=== PATIENT | female | born 1940 | race Caucasian/White ===

== ENCOUNTER → 2018-08-13 16:45 | Outpatient (CLI) | payer MEDICARE, BC, SELFPAY ==
[2018-08-13 11:51] VITALS: BMI 29.1
== END ==
PROVIDERS: Family Provider Nurse Practitioner; PCP Nurse Practitioner; Referring Provider Physician Assistant Medical; Visit Provider Physician Assistant Medical
DX: N39.0 Urinary tract infection, site not specified (principal)
CPT/HCPCS: 87086; 87088

== ENCOUNTER → 2019-01-12 10:50 | Outpatient (CLI) | payer MEDICARE, BC, SELFPAY ==
[2018-08-13 11:51] VITALS: BMI 29.1
--- NOTE | 2019-01-12 10:53 | US_ITS ---
STUDY: ULTRASOUND OF THE FEMALE PELVIS - COMPLETE REASON FOR EXAM: Female, 78 years old. Postmenopausal bleeding. LMP: The patient is postmenopausal. TECHNIQUE: Transabdominal and Transvaginal TECHNICAL QUALITY: Adequate. COMPARISON: None. FINDINGS: The uterus is anteverted and is in a midline position. The uterus measures 7.6 cm x 4.2 cm. There is a Nabothian cyst of the cervix. The endometrium is thickened and measures 14.3 mm in thickness, and is hyperechoic. There is no demonstrated endometrial mass. There is no demonstrated myometrial mass. I.U.D. - The patient does not have an I.U.D. The right ovary is non-visualized. The left ovary is non-visualized. There is minimal fluid in the cul-de-sac. The pre void volume of the bladder was 168 ml. Polycystic ovary disease: No. US/Pelvic (Non ) IMPRESSION: Heterogeneous appearance of the uterus. Thickened endometrium measuring 14.3 mm. Minimal amount of fluid is seen in the cul-de-sac. Electronically Signed: Stuart Bradford, at 12:43 EDT , Service support ,
--- NOTE | 2019-01-12 10:53 | US_ITS ---
STUDY: ULTRASOUND OF THE FEMALE PELVIS - COMPLETE REASON FOR EXAM: Female, 78 years old. Postmenopausal bleeding. LMP: The patient is postmenopausal. TECHNIQUE: Transabdominal and Transvaginal TECHNICAL QUALITY: Adequate. COMPARISON: None. FINDINGS: The uterus is anteverted and is in a midline position. The uterus measures 7.6 cm x 4.2 cm. There is a Nabothian cyst of the cervix. The endometrium is thickened and measures 14.3 mm in thickness, and is hyperechoic. There is no demonstrated endometrial mass. There is no demonstrated myometrial mass. I.U.D. - The patient does not have an I.U.D. The right ovary is non-visualized. The left ovary is non-visualized. There is minimal fluid in the cul-de-sac. The pre void volume of the bladder was 168 ml. Polycystic ovary disease: No. US/Transvaginal Non- IMPRESSION: Heterogeneous appearance of the uterus. Thickened endometrium measuring 14.3 mm. Minimal amount of fluid is seen in the cul-de-sac. Electronically Signed: Stuart Bradford, at 12:43 EDT , Service support ,
== END ==
PROVIDERS: Family Provider Nurse Practitioner; PCP Nurse Practitioner; Referring Provider Urology; Visit Provider Urology
DX: N95.0 Postmenopausal bleeding (principal)
CPT/HCPCS: 76830; 76856

== ENCOUNTER → 2019-01-30 16:56 | Outpatient (CLI) | payer MEDICARE, BC, SELFPAY ==
--- NOTE | 2019-01-30 | EMB_PTH ---
PATIENT: OBIE ZAPATA LOC: [facility] U#:[id number] AGE/SX: 84/F ROOM: RE01/30/[address]: LES Vo : 1940 BED: DIS: SPEC #: [id number] RECD: 01/30/19 16:56 STATUS: GERARDO BAUTISTA #: [id number] ROCIO: 01/30/19 00:[address]: Nanette Rodriguez NP DEPT: SURGICAL PATHOLOGY RECD BY: Robe Lawson ENTERED: 01/31/19 11:05 ANDREA TYPE: ENDOM BX/C MATT DR: LES Olivo Tissues: Endometrium, NOS Procedures: Surgery Specimen Level IV HEADER OPERATION: Endometrial biopsy PRE-OP DIAGNOSIS: Thickened endometrium TISSUE SUBMITTED: Endometrial biopsy MICROSCOPIC DIAGNOSIS Endometrial biopsy: Strips of benign endometrial epithelium, consistent with atrophic endometrium. Fragments of benign endocervical mucosa with chronic inflammation and squamous metaplasia. SJ:andrea 02/01/19 COMMENT Clinical correlation and appropriate follow up are necessary. Case has been reviewed in consultation with Dr. Hester who concurs with the above diagnosis. IDC:AM MICROSCOPIC DESCRIPTION Slides are reviewed. GROSS DESCRIPTION Received is one container labeled with the patient name and not further designated. The specimen consists of multiple minute fragments of light carr soft tissue that in aggregate measure 1.2 x 0.6 x <0.1 cm. The specimen is totally submitted in one cassette. / AM:sp 01/31/19 TC: 5 CPT: 52778
[2019-01-30 15:50] VITALS: BMI 28.2
== END ==
PROVIDERS: Family Provider Nurse Practitioner; PCP Nurse Practitioner; Referring Provider Nurse Practitioner Women's Health; Visit Provider Nurse Practitioner Women's Health
DX: R93.89 Abnormal findings on diagnostic imaging of other specified body structures (principal)
CPT/HCPCS: 88305

== ENCOUNTER 2019-03-04 10:54 | Emergency (ER) | payer MEDICARE, BC, SELFPAY ==
[2019-03-01 15:25] VITALS: BMI 28.3
[2019-03-04 10:54] VITALS: BP 166/84; PULSE 88; RESP 16; TEMP 36.4; O2SAT 98; BMI 28.3
[2019-03-04 11:33] VITALS: BP 147/75; BP 154/72; BP 158/77; PULSE 102; PULSE 76; PULSE 95
[2019-03-04 11:41] LABS: Absolute Neutrophil Count 4.7 X10^3/uL (2.0-7.7); Basophil# 0.04 X10^3/uL; Basophil% 0.5 % (0-1); Eosinophil# 0.22 X10^3/uL; Hematocrit 32.4 % (37-47); Hemoglobin 10.2 g/dL (12.0-15.0); Lymphocyte % 23.3 % (19-41); Mean Corp Hgb Conc 31.5 g/dL (32-36); Mean Corpuscular Hgb 24.6 pg (27.0-32.0); Mean Corpuscular Volume 78.3 fL (81-99); Mean Platelet Vol. 9.1 fl (6.2-12.0); Monocyte# 0.61 X10^3/uL; Monocyte% 8.3 % (0-10); NRBC Flagged by Analyzer 0 % (0-5); Neutrophil # 4.72 X10^3/uL (2.7-7.7); Neutrophil % 64.6 % (47-70); Platelet Count 431 K/mm3 (150-450); RBC Distribution Width CV 17.8 % (11.6-14.6); RBC Distribution Width SD 50.7 fl (35.1-43.9); Red Blood Count 4.14 M/mm3 (4.2-5.4); White Blood Count 7.3 K/mm3 (4.4-11.0)
[2019-03-04 11:48] LABS: International Normalized Ratio 1.1; Prothrombin Time (Protime)PT. 14.2 SECONDS (11.7-14.9)
[2019-03-04 11:49] LABS: Partial Thromboplast Time 30.9 Seconds (24.1-36.2)
--- NOTE | 2019-03-04 11:51 | ED.VISSUMM ---
- ER Visit Summary Date of Service: 03/04/19 Chief Complaint: Rectal bleeding History of Present Illness: The patient is a [address] Mendez and Altagracia Ochoa. She reports that she has rectal bleeding began at midnight. She is not on any blood thinners or aspirin. She states that she has aching suprapubic pain that builds up gradually and then she goes and has a bowel movement and passes just dark clots. No bright red blood. No melanotic stool. No stool with this at all. She denies any diarrhea. No nausea, vomiting, dysuria, or frequency. Patient reports that she saw Dr. Mendez in the office last week and was found to have external and internal hemorrhoids. At that time she refused a colonoscopy. Physical Examination: Vitals: Stable. Afebrile. General: Well-nourished and well-developed. Head: Normocephalic atraumatic. Neck: Supple, no lymphadenopathy. No JVD. Nontender. Cardiovascular: Regular rate and rhythm. No murmurs. Respiratory: No respiratory distress. Clear to auscultation bilaterally. Abdominal: Soft, nontender, nondistended, normal bowel sounds. No guarding, rebound, or peritoneal signs. Rectal: She does have external hemorrhoids. There are 2 prolapsed internal hemorrhoids that are not bleeding currently. The external hemorrhoid is not thrombosed. She refused a rectal exam. Back: Nontender. Extremities: Nontender, no edema. Skin: Normal color, no rash. Neurologic: Alert and oriented ?3. Cranial nerves II through XII are intact. Normal strength and sensation. Psych: Normal affect. Test Results: CBC shows an H&H of 10.2 and 32.4. Her last hemoglobin was in March 2017 and at that time it was 10.8. Chem-7 shows a chloride of 108 and glucose 143. INR is 1.[address] flank shows a few diverticuli in the sigmoid/descending colon without diverticulitis. Emergency Department Course and Treatment: Patient is resting comfortably. She is been stable while here. I had a prolonged discussion the patient about treatment options. She would like to go home. I did discuss with her that in order to know the source of her bleeding she will need to have a colonoscopy. At this time she is agreeing to have this occur. Treatment Plan: The patient was discussed with Dr. Mendez. She will be discharged with instructions to call the office in 3 days to schedule a colonoscopy and have the colonoscopy in 4 days. She does understand that she has worsening bleeding, lightheadedness, syncope, shortness of breath, or chest pain that she needs to return to emergency department and be admitted for further evaluation and treatment. Disposition: To home in improved and stable condition. Impression: 1. Stable lower GI bleed. 2. Internal hemorrhoids, prolapse. 3. External hemorrhoids. 4. Diverticulosis. This note was generated with [employer] software. It may contain incorrect words, spelling, and punctuation that were not noted in review of the chart prior to signing ED Disposition - Plan for ED Patient: Disposition: Home or Assisted Living Instructions: RECTAL BLEED, Stable Referrals: Jolene Mendez MD [STAFF PHYSICIAN] - Additional Instructions: Call on Wednesday and they can schedule the colonoscopy on Wednesday.
[2019-03-04 11:52] LABS: Anion Gap 5 (5-15); BUN 13 mg/dL (7-18); BUN/Creat Ratio 18.5 RATIO (10-20); Calcium,Total 8.8 mg/dL (8.5-10.1); Chloride 108 mmol/L (98-107); EST Glomerular Filtration Rate 86 mL/min (>60); Est Glom Filt Rate - Afr Amer 104 mL/min (>60); Estimated Creatinine Clearance 43.07 ml/min; Glucose 143 mg/dL (74-106); Potassium 3.8 mmol/L (3.5-5.1); Sodium Level 140 mmol/L (136-145)
--- NOTE | 2019-03-04 12:10 | CT_ITS ---
STUDY: CT ABDOMEN AND PELVIS WITHOUT CONTRAST REASON FOR EXAM: Female, 78 years old. Lower abdominal pain x days. Diarrhea. RADIATION DOSAGE (If Supplied By Facility): CTDIvol = ( 11.11 ) mGy, DLP = ( 606.82 ) mGycm TECHNIQUE: Transaxial images were obtained from the dome of the diaphragm to the symphysis pubis without oral contrast, and without intravenous contrast. Sagittal and coronal images were reconstructed. Individualized dose optimization techniques were used for this CT. COMPARISON: None. FINDINGS: The visualized lung bases are unremarkable. The visualized portions of the heart are within normal limits. Normal liver. No visible gallbladder. It may be contracted or postsurgically absent. Normal spleen. Normal pancreas. Normal bilateral adrenal glands. Normal right kidney. Normal left kidney. Normal visualized stomach. Normal small intestine. Few diverticula in the sigmoid colon and descending colon without diverticulitis. The appendix is visualized and appears normal. Atherosclerotic calcifications in the abdominal aorta and iliac arteries. Normal inferior vena cava. Normal retroperitoneum. Normal urinary bladder. Hyperdense radiopaque foreign body inside the vaginal canal. Please correlate with physical exam. Normal abdominal wall. Pronounced disc space height narrowing with endplate sclerosis at L1-L2 disc space level. Pronounced disc space height narrowing with vacuum phenomenon at L5-S1 disc space level. Mild degenerative anterolisthesis of L4 on L5 with moderate disc space height narrowing. CT/Abdomen/Pelvis without Cont IMPRESSION: 1. Few diverticula in the sigmoid colon and descending colon without diverticulitis. 2. No suspicious mass or acute abnormality in the abdomen and pelvis. 3. Hyperdense radiopaque foreign body inside the vaginal canal. Please correlate with physical exam or history. Electronically Signed: Jarod Porter MD at 14:14 EDT , Service support ,
[2019-03-04 13:27] VITALS: BP 131/59; PULSE 76; RESP 18; O2SAT 98
[2019-03-04 15:00] VITALS: BP 150/58; PULSE 76; RESP 18; O2SAT 98
[2019-03-04 15:32] VITALS: BP 150/58; PULSE 76; RESP 20; O2SAT 98
== END 2019-03-04 15:33 | disposition home or self-care (01) ==
LOC: ED 11:27
PROVIDERS: Emergency Provider Emergency Medicine; Family Provider Nurse Practitioner; PCP Nurse Practitioner
DX: K64.4 Residual hemorrhoidal skin tags (principal); K64.8 Other hemorrhoids; K57.91 Diverticulosis of intestine, part unspecified, without perforation or abscess with bleeding; E11.9 Type 2 diabetes mellitus without complications; I10 Essential (primary) hypertension; Z86.73 Personal history of transient ischemic attack (TIA), and cerebral infarction without residual deficits
CPT/HCPCS: 74176; 80048; 85025; 85610; 85730; 99285; A4216

== ENCOUNTER 2019-03-08 09:49 | Day surgery (SDC) | payer MEDICARE, BC, SELFPAY ==
[2019-03-08] VITALS (7 sets, daily range): BP systolic 106–141; BP diastolic 43–68; PULSE 77–88; RESP 16–18; TEMP 36.3–37.2; O2SAT 99–100; BMI 27.5
--- NOTE | 2019-03-08 | COLBX_PTH ---
PATIENT: OBIE ZAPATA LOC: EN U#:[id number] AGE/SX: 78/F ROOM: RE03/08/[address]: Dr. Jolene Mendez MD : 1940 BED: DIS: 03/08/2019 SPEC #: [id number] RECD: 03/08/19 11:39 STATUS: GERARDO BAUTISTA #: [id number] ROCIO: 03/08/19 00:[address]: Jolene Mendez DEPT: SURGICAL PATHOLOGY RECD BY: Taisha Tejada ENTERED: 03/08/19 11:55 SP TYPE: COLON BX OTHR DR: Altagracia Ochoa, SPECIMEN TECHNICIAN-C Tissues: Rectum, NOS Procedures: Surgery Specimen Level IV HEADER OPERATION: Colonoscopy (MAC) PRE-OP DIAGNOSIS: Straining with bowel movements, rectal bleeding TISSUE SUBMITTED: Rectal mass biopsy MICROSCOPIC DIAGNOSIS Rectal mass, biopsy: Invasive well differentiated adenocarcinoma. AM:marjan 03/09/19 COMMENT Immunohistochemistry ([id number]) supports the above diagnosis. There is no evidence of micro satellite instability. Case has been reviewed in consultation with Dr. Dickey who concurs with the above diagnosis. IDC:SJ MICROSCOPIC DESCRIPTION Slides are reviewed. GROSS DESCRIPTION Received in fixative is one container labeled with the patient's name and designated rectal mass biopsy. The specimen consists of multiple irregular fragments of light carr soft tissue that in aggregate measure 2 x 1.5 x 0.2 cm. The specimen is totally submitted in one cassette. / AM:rg 03/08/19 TC:0 CPT: 06126
--- NOTE | 2019-03-08 | IMM_PTH ---
PATIENT: OBIE ZAPATA LOC: EN U#:[id number] AGE/SX: 78/F ROOM: RE03/08/[address]: Dr. Jolene Mendez MD : 1940 BED: DIS: 03/08/2019 SPEC #: [id number] RECD: 03/09/19 10:34 STATUS: GERARDO REQ #: [id number] ROCIO: 03/08/19 00:[address]: Jolene Mendez DEPT: IMMUNOHISTOCHEMISTRY RECD BY: Karina Castañeda ENTERED: 03/09/19 10:35 SP TYPE: IMMUNO OTHR DR: Altagracia Ochoa, MANDATE RETAIL SERVICE MERCHANDISER-C Tissues: Rectum, NOS Procedures: MSH2 (add) MLH-1 (add) MSH6 (add) Anti-PMS2 (add) TILLMAN-2 (add) HER2 LUZ (add) P53 (add) KI-67 (initial) PHYSICIAN & INSTITUTION [place] [id number] SPECIMEN INFORMATION: Tissue Source: Rectal mass biopsy Clinical Info: Rectal bleeding Specimen Number: [id number] CPT code: 62018, 79537 x7 METHODOLOGY: Deparaffinized sections of prefer/formalin-fixed tissue or PAP/DQ stained slides are incubated with monoclonal/polyclonal antibodies/oligonucleotide probes. Localization is made via biotin free immunoperoxidase method. Appropriate controls are performed and reacted as expected. Results on target cell population are indicated in the following table: RESULTS: ANTIBODY / CLONE RESULT Ki-67 (30-9) positive, moderate to high P53 (DO-7) positive, 25% dim TILLMAN-2 (SP21) positive MLH-1 (M1) positive MSH2 (25D12) positive MSH6 (44) positive PMS2 (DVQ0262) positive Her-2neu (CB11) negative These tests were developed and their performance characteristics determined by [facility]. They may not have been cleared or approved by the U.S. Food and Drug Administration. The FDA has determined that such clearance or approval is not necessary. INTERPRETATION: Rectal mass, biopsy: Invasive adenocarcinoma. Result of Microsatellite Instability Study: Negative (no loss of mismatch protein; no microsatellite instability detected). AM:marjan 03/10/19
--- NOTE | 2019-03-08 10:37 | HP.PCM_ITS ---
History and Physical Date of Admission: 03/08/19 Intake Vital Signs 02/21/19 Body Mass Index (BMI) 28.3 02/21/19 Height 5 ft 5 in 02/21/19 Weight: 172 lb 02/21/19 Body Mass Index (BMI) 28.6 02/21/19 Blood Pressure 168/78 H 02/21/19 Blood Pressure Location Rt brachial 02/21/19 Respiratory Rate 18 02/21/19 Pulse Rate 80 02/21/19 Pulse Source Monitor 02/21/19 Temperature 98.2 F 02/21/19 Pulse Ox 100 02/21/19 Oxygen Delivery Method room air Intake Visit Reasons: C-Scope Consult & Hemorrhoids Chief Complaint: pessary falling out Audio Visual Engineer Required: No Is patient in pain?: No Allergies chlorhexidine [From Hibiclens] Allergy (Intermediate, Verified 02/21/19 14:24) Rash Latex, Natural Rubber Allergy (Intermediate, Verified 02/17/19 10:53) Rash metoprolol Allergy (Intermediate, Verified 02/21/19 14:24) insomnia prednisone Allergy (Unknown, Verified 02/21/19 14:24) Unknown Medications clopidogrel 75 mg tablet 75 mg PO DAILY 08/13/18 [History Confirmed 02/21/19] quinapril 40 mg tablet 40 mg PO DAILY 08/13/18 [History Confirmed 02/21/19] hydrochlorothiazide 12.5 mg tablet 12.5 mg PO DAILY PRN 01/30/19 [History Confirmed 02/21/19] insulin glargine (U-300) conc. 300 unit/mL (1.5 mL) subcutaneous pen 16 unit SC DAILY ml 01/30/19 [History Confirmed 02/21/19] estradiol 0.01% (0.1 mg/gram) vaginal cream See Rx Instructions VAGINAL 2XW 02/08/19 [History Confirmed 02/21/19] PFSH Medical History TIA (transient ischemic attack) (Acute) Hypertension (Chronic) Diabetes mellitus (Chronic) Arthritis (Acute) Thickened endometrium (Acute) Surgical History (Updated 02/21/19 @ 14:22 by Heaven Barnett) History of hemorrhoidectomy (Acute) S/P cholecystectomy (Resolved) Family History (Updated 02/21/19 @ 14:22 by Heaven S Barnett) Mother Hypertension Diabetes Father Kidney disease Social History (Updated 02/22/19 @ 12:33 by Jolene Mendez MD) Smoking Status: Never smoker alcohol intake: never substance use type: does not use caffeine: Yes what type of physical activity do you participate in: none seatbelt use: always do you feel safe at home: Yes additional social history: -Mckoy HPI HPI HPI: OBIE ZAPATA, is a 78 F who presents to the office today for HPI HPI Surgical H&P: Yes HPI: OBIE ZAPATA, is a 78 F who presents to the office today for hemorrhoids and needing to strain to have BM. Pt has never had a colonoscopy. denies FH of colon cancer. Pt had hemorrhoidectomy about [address] Dean office. Pt does have uterine prolapse and currently has a pessary in currently. Pt states her hemorrhoid can cause her some discomfort occasionally but she feels it maybe further inside her rectum 3-4/10 when it occurs, pt states she does occasionally see maroon blood in the toilet denies clots, pt states she has daily BM mostly liquid, which has been like this for years. She denies abd pain. She isn't really that interested in getting a colonoscopy. Also she was wondering if the pessary could be making it so she needs to strain to have a BM, pt was unable to tell me if she had this issue when the pessary was out. ROS General General: No weight change, appetite, fatigue, colon cancer, breast cancer or weakness HEENT HEENT: No difficulty swallowing, eye injury, eye surgery, swollen glands or hoarseness Endo Endocrine: Yes diabetes mellitus; no thyroid disease, thyroid cancer, Hair loss, heat intolerance or cold intolerance Skin Skin: No rash or changing moles Breast Breast: No left breast lump, right breast lump, nipple discharge, breast pain, abnormal mammogram, abnormal US or breast enlargement Musc Musculoskeletal: Yes arthritis; no back problems, rheumatoid arthritis, gout or joint pain Cardio Cardiovascular: Yes high blood pressure; no murmur, pacemaker, heart disease, atrial fibrillation, heart attack, heart stent, palpitations, shortness of breat with exertion or chest pain Psych Psychiatric: No depression, anxiety or hearing voices Resp Respiratory: No shortness of breath, No sleep apnea, No cough, No COPD, No asthma, No emphysema, No wheezing Gastro Gastrointestinal: No abdominal pain, No nausea or vomiting, Yes diarrhea, No constipation, Yes blood in stool, No acid reflux, Yes hemorrhoids, No ulcers, No gallbladder problem, No black,tarry stools Thomas Hematologic: Yes blood thinners, No blood disorders, No bleeding, Yes anemia, No blood clots Neuro Neurologic: No system reviewed and no additional complaints, except as docu, No as per HPI, No abnormal walking, No abnormal hearing, No abnormal movements, No abnormal speech, No behavioral changes, No burning sensations, No confusion, No seizure-like activity, No unsteadiness, No dizziness, No localized weakness, No frequent falls, No headache(s), No lack of coordination, No loss of vision, No memory loss, No numbness, No other visual disturbances, No radiating pain, No restless legs, No sensory deficit, No fainting, No tingling, No tremor(s), No weakness, No other (stroke/tia) Exam Const General: cooperative, comfortable, no acute distress Chest Breast Palpation: No nipple discharge Resp Effort & Inspection: normal respiratory effort Cardio Rate: regular rate Heart Sounds: no murmurs GI Inspection: non-distended Palpation: soft, no guarding, nontender Other: KISHOR: small residual external hemorrhoid tissue, +internal hemorrhoids at 5:00 (12:00 posterior), no gross blood or masses appreciated. Vaginal pessary in place Assessment & Plan Problems 1. Hemorrhoids K64.9 2. Straining during bowel movements R19.8 3. 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 Pt doesn't really know if she wants to proceed with a colonoscopy, but I did discuss procedure and risk with patient. I have discussed the above with the patient. I have offered the patient colonoscopy for evaluation. I have explained the risks/benefits of the procedure and described the procedure. I have discussed the risks with the patient, including but not limited to: infection, bleeding, perforation of the GI tract requiring emergency surgery, inability to complete the procedure, injury to any internal organs, complications of anesthesia, etc. - the patient understands and agrees to proceed. I have answered all the patient's questions to the patient's satisfaction and the patient has no further questions. The patient has been given instructions for the colon cleansing preparation. 2 days of clears & miralax/dulcolax split. Offered pt hydrocortisone/lidocaine suppositories for her internal hemorrhoids to see if that helps. Pt will let us know if she changes her mind about the scope and f/u in 2 weeks. pt had no further questions. Plan Detail Follow Up 2 weeks. 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 I have examined the patient the following changes are noted: Patient did go to the ER due to maroon clots per rectum on 03/04/2018. Patient's hemoglobin was stable as well as vital signs. Patient did hold her Plavix as of Wednesday and complete her prep for the colonoscopy. Patient states that she has not had any further clots or blood per rectum since going to the ER. Patient had no further questions about the procedure.
[2019-03-08] MEDS: Lactated Ringers 1,000 ML 75 ML IV (10:48)
[2019-03-08 10:56] LABS: Bedside Glucose 113 mg/dL (70-110)
--- NOTE | 2019-03-08 11:31 | OP.ENDO_ITS ---
03/08/2019 Altagracia Ochoa, KACI [address] [place] [address] Re : Colonoscopy procedure for Rachel Etienne Dear Ms. Ochoa This procedure was performed on Friday, March 08, 2019. My impressions and recommendations are as follows: Impressions : - The procedure was aborted due to partially obstructing mass. - Hemorrhoids found on perianal exam- grade III internal. 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 Biopsied. - Malignant-appearing tumor in the colon. Biopsied. Recommendations : - Discharge patient to home. - Full liquid diet. - Await pathology results. - Refer to a colo-rectal surgeon at appointment to be scheduled. - Hold plavix - Repeat colonoscopy is recommended because the examination was incomplete. The colonoscopy date will be determined after pathology results from today's exam become available for review. - No aspirin, ibuprofen, naproxen, or other non-steroidal anti-inflammatory drugs after biopsy. My findings are described in the full procedure note, which is enclosed. If I can be of further assistance, please feel free to contact me at Doctor phone number(s): , Work: . Sincerely, MD Jolene Valenzuela MD 03/08/2019 11:30:45 AM This report has been signed electronically.
--- NOTE | 2019-03-08 12:09 | CT_ITS ---
STUDY: CT ABDOMEN AND PELVIS WITH CONTRAST REASON FOR EXAM: Female, 78 years old. Rectal mass RADIATION DOSAGE (If Supplied By Facility): CTDIvol = ( 15.89 ) mGy, DLP = ( 1223.77 ) mGycm TECHNIQUE: Transaxial images were obtained from the dome of the diaphragm to the symphysis pubis with oral contrast. 100 ml of Isovue 300 contrast was administered. Sagittal and coronal images were reconstructed. Individualized dose optimization techniques were used for this CT. COMPARISON: 03/04/2019 FINDINGS: This study is limited by patient motion. There are no calcified gallstones present. The liver is within normal limits. There are no suspicious hepatic lesions. The spleen is normal in size. The pancreas is within normal limits. The adrenal glands are within normal limits. There are no renal or ureteral stones. There is no hydronephrosis. There are no focal renal lesions. Normal visualized stomach. There is no bowel obstruction. There is concentric bowel wall thickening in the rectosigmoid colon which is consistent with the patient's known mass. The appendix is visualized and appears normal. The aorta is normal in caliber. There is a pessary device noted. There is perirectal lymphadenopathy noted, measuring up to 1.3 cm. There is no free air, free fluid or fluid collection. There are no destructive osseous lesions. CT/Abdomen/Pelvis WITH Contrast IMPRESSION: Concentric bowel wall thickening rectosigmoid colon which is consistent with the patient's known mass. Perirectal lymphadenopathy. This is highly suspicious for neoplasm. No evidence of metastatic disease in the abdomen or pelvis. Electronically Signed: Lucio Amador, at 15:13 EDT Tel , Service support ,
--- NOTE | 2019-03-08 12:09 | CT_ITS ---
STUDY: CT CHEST WITH CONTRAST REASON FOR EXAM: Female, 78 years old. Rectal mass RADIATION DOSAGE (If Supplied By Facility): CTDIvol = ( 15.89 ) mGy, DLP = ( 1223.77 ) mGycm TECHNIQUE: Transaxial imaging was performed following intravenous administration of 100 ml of Isovue 300 contrast material. Coronal and sagittal reformatted images were created. Individualized dose optimization techniques were used for this CT. COMPARISON: None FINDINGS: There are mild emphysematous changes noted in the lungs. There is a 4 mm nodule in the right middle lobe (image 72 series 6). There is a 5 mm pleural-based nodule in the left lower lobe (image 58 series 6). There is a 7 mm pleural-based nodule in the left lower lobe (image 54 series 6). There are no pulmonary infiltrates or pleural effusions. There is no pneumothorax. The heart and pericardium are within normal limits. There is no thoracic lymphadenopathy. There is no evidence of thoracic aortic aneurysm. There are no destructive osseous lesions. There are degenerative changes noted in the spine. CT/Chest WITH Contrast IMPRESSION: Mild emphysema. Subcentimeter indeterminate pulmonary nodules measuring up to 7 mm. Follow-up CT in 3-6 months is recommended. No pulmonary metastases or pleural effusions. Electronically Signed: Lucio Amador, at 15:03 EDT Tel , Service support ,
[2019-03-08 12:19] LABS: Absolute Lymphocyte Count 1.19 X10^3/uL (0.83-4.51); Absolute Neutrophil Count 5.6 X10^3/uL (2.0-7.7); Basophil# 0.04 X10^3/uL; Basophil% 0.5 % (0-1); Eosinophil# 0.12 X10^3/uL; Eosinophils% 1.6 % (0-5); Hemoglobin 9.5 g/dL (12.0-15.0); Lymphocyte # 1.19 X10^3/ul (4.0); Lymphocyte % 15.8 % (19-41); Mean Corp Hgb Conc 31.7 g/dL (32-36); Mean Corpuscular Hgb 24.9 pg (27.0-32.0); Mean Corpuscular Volume 78.5 fL (81-99); Mean Platelet Vol. 8.5 fl (6.2-12.0); Monocyte# 0.63 X10^3/uL; Monocyte% 8.3 % (0-10); NRBC Flagged by Analyzer 0 % (0-5); Neutrophil # 5.55 X10^3/uL (2.7-7.7); Neutrophil % 73.5 % (47-70); Platelet Count 373 K/mm3 (150-450); RBC Distribution Width CV 17.3 % (11.6-14.6); RBC Distribution Width SD 50.3 fl (35.1-43.9); Red Blood Count 3.82 M/mm3 (4.2-5.4); White Blood Count 7.6 K/mm3 (4.4-11.0)
--- NOTE | 2019-03-08 12:31 | PCM.PN.BLA ---
Progress Note Did discuss colonoscopy findings with the patient and her family. There was a large circumferential rectal mass seen unable to pass it safely with the scope. It was about from 10 cm to 15 cm along with polypoid mass on the small aspect of the visualized fungating mass. Multiple biopsies were taken. I am obtaining blood work including a CBC, CMP, prealbumin and CEA. Also discussed with patient family the need for a staging work-up. Patient was agreeable to have the CT chest?abdomen/pelvis with p.o., rectal, IV contrast done today as well. Discussed with patient and the family that likely this mass is partially obstructing but since she was able to tolerate the prep does not appear to be completely obstructing. Would recommend patient seeing colorectal to discuss options to see if patient would want further treatment or not for the rectal mass. Did discuss with patient and her family that at some point if there is no additional treatment done or even with additional treatment this could possibly obstructed patient could need diverting ostomy at that time or patient could maybe get a metal stent prior to complete obstruction placed if she was going to plan to go to treatment then surgery. Patient and family will discuss where they would like to go either [facility] or [facility] and they will let me know. Jolene Mendez M.D. Pager: [phone] [facility] [address] [place] [address], [address] [place] [address] Office: [phone]
[2019-03-08 12:49] LABS: ALB/GLOB Ratio 0.8 RATIO (0.9-2.4); AST(SGOT) 16 U/L (15-37); Alanine Aminotransfer ALT/SGPT 14 U/L (13-56); Albumin, Serum 3.1 g/dL (3.2-5.0); Alkaline Phosphatase 66 U/L (45-117); Anion Gap 7 (5-15); BUN 8 mg/dL (7-18); BUN/Creat Ratio 11.3 RATIO (10-20); Calcium,Total 8.5 mg/dL (8.5-10.1); Chloride 109 mmol/L (98-107); Creatinine, Serum 0.71 mg/dL (0.55-1.02); EST Glomerular Filtration Rate 85 mL/min (>60); Est Glom Filt Rate - Afr Amer 103 mL/min (>60); Estimated Creatinine Clearance 43.07 ml/min; Globulin 3.9 g/dL (2.2-4.2); Glucose 101 mg/dL (74-106); Potassium 3.8 mmol/L (3.5-5.1); Prealbumin 11.7 mg/dL (20.0-40.0); Sodium Level 141 mmol/L (136-145)
[2019-03-09 13:07] LABS: Carcinoembryonic Antigen 121.4 ng/mL (0.0-4.7)
== END 2019-03-08 14:05 | disposition home or self-care (01) ==
LOC: EN 09:50 → AC 09:51
PROVIDERS: Family Provider Nurse Practitioner; PCP Nurse Practitioner; Referring Provider Nurse Practitioner; Visit Provider Surgery
PROC: 0DJD8ZZ Inspection of Lower Intestinal Tract, Via Natural or Artificial Opening Endoscopic (ICD-10-PCS; CPT 45378; principal; 2019-03-08 11:40)
DX: C20 Malignant neoplasm of rectum (principal); K64.9 Unspecified hemorrhoids; K56.690 Other partial intestinal obstruction; Z53.8 Procedure and treatment not carried out for other reasons; N81.2 Incomplete uterovaginal prolapse; R19.8 Other specified symptoms and signs involving the digestive system and abdomen; K64.8 Other hemorrhoids; J43.9 Emphysema, unspecified; Z79.4 Long term (current) use of insulin; Z91.040 Latex allergy status; E11.9 Type 2 diabetes mellitus without complications; I10 Essential (primary) hypertension; Z86.73 Personal history of transient ischemic attack (TIA), and cerebral infarction without residual deficits
CPT/HCPCS: 45380; 71260; 74177; 80053; 82378; 82962; 84134; 85025; 88305; 88341; 88342; J7120; Q9967; A4216

== ENCOUNTER → 2019-04-13 11:57 | Outpatient (CLI) | payer MEDICARE, BC, SELFPAY ==
[2019-04-13 08:30] VITALS: BMI 27.5
== END ==
PROVIDERS: Family Provider Nurse Practitioner; PCP Nurse Practitioner; Referring Provider Obstetrics & Gynecology; Visit Provider Obstetrics & Gynecology
DX: N89.9 Noninflammatory disorder of vagina, unspecified (principal)
CPT/HCPCS: 87070; 87205

== ENCOUNTER 2019-05-13 21:02 | Emergency (ER) | payer MEDICARE, BC, SELFPAY ==
[2019-04-13 08:30] VITALS: BMI 27.5
[2019-05-13 21:04] VITALS: BP 128/105; PULSE 82; RESP 17; TEMP 37.5; O2SAT 98; BMI 27.6
--- NOTE | 2019-05-13 21:17 | ED.DCSUM_ITS ---
History of Present Illness Chief Complaint: Fever Detail of Chief Complaint: Fever and rigors Informant: Patient, Family Onset: Today Context: Sudden Onset Timing: Continuous Quality: Rigors and temp of 100.4, repeat 101.3 Location: Not applicable Current Severity: Mild Maximum Severity: Mild Worsened by: Nothing Relieved by: Nothing Associated Symptoms: Dysuria and vaginal discharge Narrative: Patient is a 78-year-old woman who was diagnosed with colon cancer end of March beginning of April. She is undergoing radiation therapy 5 days a week and chemotherapy. Last dose of chemo was yesterday and last radiation dose was yesterday. She had rigors at home. Daughter took temperature of 100.4. They repeated her temperature and it was 101.3. She states she does not feel well. She denies headache, ocular, visual auditory sense. She denies upper respiratory symptoms. She denies nausea, vomiting diarrhea. She does report dysuria. States she has vaginal discharge. She had a pessary placed by Dr. Lloyd Be. She states it was last cleaned 1 month ago. She denies rash. She denies back or flank pain. Prior similar symptoms: No Recent Illness/Hospitalization: Yes - Past Medical History (1) Cystocele with incomplete uterovaginal prolapse Status: Acute (2) Rectal cancer Status: Acute Comment: plan chemo radiation (3) TIA (transient ischemic attack) Status: Acute (4) Diabetes mellitus Status: Chronic (5) Hypertension Status: Chronic Past Medical History - Allergies and Home Meds Allergies/Adverse Reactions: Allergies chlorhexidine [From Hibiclens] Allergy (Intermediate, Verified 05/13/19 21:03) Rash Latex, Natural Rubber Allergy (Intermediate, Verified 05/13/19 21:03) Rash metoprolol Allergy (Intermediate, Verified 05/13/19 21:03) insomnia prednisone Allergy (Unknown, Verified 05/13/19 21:03) Unknown Primary Care Physician: Altagracia Ochoa NP-C [Primary Care Provider] - Prior records reviewed: Yes Lives: With Family Smoking Status: Never smoker Alcohol: None Drugs: None Review of Systems General: Reports: Chills, Fever, Malaise. Denies: Subjective, Sweats, Weight loss Eyes: Reports: Visual changes - bilaterally, Diplopia. Denies: Blurred Vision - bilaterally ENT: Denies: Bilateral ear pain, Rhinorrhea, Sore throat Cardiovascular: Denies: Chest pain, Palpitations Respiratory: Denies: Dyspnea, Cough, Dyspnea on exertion Gastrointestinal: Denies: Abdominal pain, Nausea, Vomiting, Diarrhea, Constipation, Melena, Hematochezia, -, - Genitourinary: Reports: Dysuria. Denies: Hematuria, Frequency Musculoskeletal: Denies: Myalgias, Arthralgias, Neck pain, Back pain, Swelling, Extremity Pain Skin: Denies: Rash, Wounds Neurological: Denies: Headache, Weakness, Parasthesia, Numbness, -, - Endocrine: Denies: Polyuria, Polydipsia Hematologic: Denies: Easy bruising, Easy bleeding Physical Exam Vital Signs/Narrative: Vital Signs Temp Pulse Resp BP Pulse Ox 05/13/19 21:04 99.5 F H 82 17 128/105 H 98 Inital Vital Signs reviewed: Yes General: Well nourished, Well developed, - - She does not appear well. Head: Normocephalic, Atraumatic Eyes: Perrl, EOMI. Negative for: Pale conjunctiva, Scleral icterus ENT: No rhinorrhea, TM's clear, Dry mucous membranes Neck: Supple, Nontender, No lymphadenopathy, No JVD Cardiovascular: Regular rate, Regular rhythm, No murmurs, Normal S1, Normal S2 Respiratory: No distress, CTA bilaterally, Chest nontender Abdomen: Soft, Nondistended, Normal bowel sounds, Tender - Suprapubic discomfort. Negative for: Nontender, Hepatomegaly, Splenomegaly Rectal: Deferred Back: Nontender, Normal Inspection. Negative for: CVA tenderness Extremities: Nontender, No edema Skin: Normal color, No rash, No Trauma. Negative for: Cyanosis, Diaphoresis, Jaundice Neurological: Alert, Oriented x3, Cranial nerves II-XII grossly intact, Normal Strength, Normal Sensation, Normal Gait Psychological: Depressed Diagnostic/Tx/Re-eval - Medical Decision Making Recent diagnosis of colon cancer and recent chemo and radiation therapy will need to evaluate for neutropenia. Will obtain blood cultures and urine culture. Since patient has urinary symptoms she received a dose of Rocephin IV piggyback. Blood work was obtained to assess white count, H&H renal function and CO2/anion gap. Dr. Chalino Charles on-call for Dr. Victor was contacted. He was informed patient history, symptoms, laboratory results and that she received 1 dose of Rocephin. Plan is for Dr. Victor to follow cultures and discharged home with no antibiotics. ED Disposition - Plan for ED Patient: Disposition: Home or Assisted Living Diagnosis: Fever and chills Instructions: FEBRILE ILLNESS, Uncertain Cause (Adult) Referrals: Altagracia Ochoa, KACI-C [Primary Care Provider] - Karen Victor MD [STAFF PHYSICIAN] - 3-5 Days if not improving
[2019-05-13 21:34] LABS: Absolute Lymphocyte Count 0.43 X10^3/uL (0.83-4.51); Absolute Neutrophil Count 4.1 X10^3/uL (2.0-7.7); Basophil# 0.03 X10^3/uL; Basophil% 0.5 % (0-1); Eosinophil# 0.48 X10^3/uL; Eosinophils% 8.4 % (0-5); Hematocrit 27.6 % (37-47); Hemoglobin 9.2 g/dL (12.0-15.0); Lymphocyte # 0.43 X10^3/ul (4.0); Lymphocyte % 7.5 % (19-41); Mean Corp Hgb Conc 33.3 g/dL (32-36); Mean Corpuscular Hgb 25.9 pg (27.0-32.0); Mean Corpuscular Volume 77.7 fL (81-99); Mean Platelet Vol. 9.2 fl (6.2-12.0); Monocyte# 0.64 X10^3/uL; Monocyte% 11.2 % (0-10); NRBC Flagged by Analyzer 0 % (0-5); POSITIVE DIFFERENTIAL YES; Platelet Count 291 K/mm3 (150-450); RBC Distribution Width CV 18.7 % (11.6-14.6); RBC Distribution Width SD 43.8 fl (35.1-43.9); Red Blood Count 3.55 M/mm3 (4.2-5.4); White Blood Count 5.7 K/mm3 (4.4-11.0)
[2019-05-13 21:36] LABS: Differential Indicated SCAN CRITERIA MET
[2019-05-13 21:53] LABS: Anion Gap 9 (5-15); BUN 16 mg/dL (7-18); Calcium,Total 8.1 mg/dL (8.5-10.1); Chloride 101 mmol/L (98-107); Creatinine, Serum 1.07 mg/dL (0.55-1.02); EST Glomerular Filtration Rate 53 mL/min (>60); Est Glom Filt Rate - Afr Amer 64 mL/min (>60); Estimated Creatinine Clearance 40.25 ml/min; Glucose 281 mg/dL (74-106); Potassium 4.2 mmol/L (3.5-5.1); Sodium Level 135 mmol/L (136-145)
[2019-05-13 22:00] VITALS: TEMP 37.5
[2019-05-13 22:06] LABS: Lactic Acid 1.4 mmol/L (0.4-2.0)
[2019-05-13 22:09] LABS: Differential Comment SCANNED
[2019-05-13 22:22] LABS: Bacteria 0 SEEN /hpf (None Seen); Red Blood Cells-Urine 0 SEEN /hpf (0-5); White Blood Cells 0 SEEN /hpf (0-5)
[2019-05-13 22:24] LABS: Color, Urine Yellow (Yellow); Glucose, Dipstick 1000 mg/dl (Normal); Ketone-Dipstick Negative (Negative); Leukocyte Esterase-Dipstick Negative /ul (Negative); Nitrite-Dipstick Negative (Negative); Occult Blood-Urine 10 /ul (Negative); Protein-Dipstick Negative (Negative); Urine Bilirubin Dipstick Negative (Negative); Urine Clarity Clear (Clear); Urine Urobilinogen Normal (Normal)
[2019-05-13 22:41] LABS: Mucous, Urine RARE /hpf (<or=2+); Squamous Epithelial Cells - UA 0-5 SEEN /hpf (5-10)
[2019-05-13 23:27] VITALS: BP 128/95; PULSE 88; RESP 17; O2SAT 97
== END 2019-05-13 23:28 | disposition home or self-care (01) ==
PROVIDERS: Emergency Provider Emergency Medicine; Family Provider Nurse Practitioner; PCP Nurse Practitioner
DX: R50.9 Fever, unspecified (principal); E11.9 Type 2 diabetes mellitus without complications; I10 Essential (primary) hypertension; Z86.73 Personal history of transient ischemic attack (TIA), and cerebral infarction without residual deficits; C18.9 Malignant neoplasm of colon, unspecified
CPT/HCPCS: 80048; 81001; 83605; 85025; 87040; 87086; 96365; 99285; J7030; P9612; A4216; J0696

== ENCOUNTER → 2019-11-28 07:53 | Outpatient (CLI) | payer MEDICARE, BC, SELFPAY ==
[2019-07-03 08:04] VITALS: BMI 27.0
[2019-11-28 09:07] LABS: Absolute Lymphocyte Count 1.15 X10^3/uL (0.83-4.51); Absolute Neutrophil Count 2.5 X10^3/uL (2.0-7.7); Basophil# 0.05 X10^3/uL; Basophil% 1.1 % (0-1); Eosinophils% 6.6 % (0-5); Hematocrit 33.5 % (37-47); Hemoglobin 10.5 g/dL (12.0-15.0); Lymphocyte # 1.15 X10^3/ul (4.0); Lymphocyte % 25.2 % (19-41); Mean Corp Hgb Conc 31.3 g/dL (32-36); Mean Corpuscular Hgb 25.9 pg (27.0-32.0); Mean Corpuscular Volume 82.5 fL (81-99); Mean Platelet Vol. 9.6 fl (6.2-12.0); Monocyte# 0.52 X10^3/uL; Monocyte% 11.4 % (0-10); NRBC Flagged by Analyzer 0 % (0-5); Neutrophil # 2.53 X10^3/uL (2.7-7.7); Neutrophil % 55.5 % (47-70); Platelet Count 262 K/mm3 (150-450); RBC Distribution Width CV 19.8 % (11.6-14.6); Red Blood Count 4.06 M/mm3 (4.2-5.4); White Blood Count 4.6 K/mm3 (4.4-11.0)
[2019-11-28 09:25] LABS: Hemoglobin A1c 8.2 % (3.8-5.6)
[2019-11-28 09:46] LABS: ALB/GLOB Ratio 0.8 RATIO (0.9-2.4); AST(SGOT) 21 U/L (15-37); Alanine Aminotransfer ALT/SGPT 25 U/L (13-56); Albumin, Serum 3.3 g/dL (3.2-5.0); Alkaline Phosphatase 76 U/L (45-117); Anion Gap 9 (5-15); BUN 21 mg/dL (7-18); BUN/Creat Ratio 24.9 RATIO (10-20); Calcium,Total 8.7 mg/dL (8.5-10.1); Chloride 108 mmol/L (98-107); Creatinine, Serum 0.84 mg/dL (0.55-1.02); EST Glomerular Filtration Rate 69 mL/min (>60); Est Glom Filt Rate - Afr Amer 84 mL/min (>60); Ferritin 24 ng/mL (8-252); Globulin 4.3 g/dL (2.2-4.2); Glucose 89 mg/dL (74-106); Iron 63 ug/dL (50-170); Iron Binding Capacity,Total 384 ug/dL (250-450); Potassium 3.9 mmol/L (3.5-5.1); Protein, Total 7.6 g/dL (6.4-8.2); Sodium Level 140 mmol/L (136-145); Thyroid Stim Hormone (TSH) 1.66 uIU/mL (0.358-3.74)
[2019-11-29 06:45] LABS: Carcinoembryonic Antigen 1.9 ng/mL (0.0-4.7)
== END ==
PROVIDERS: PCP Nurse Practitioner; Referring Provider Nurse Practitioner; Visit Provider Nurse Practitioner
DX: E11.65 Type 2 diabetes mellitus with hyperglycemia (principal); D64.9 Anemia, unspecified; I11.9 Hypertensive heart disease without heart failure; D50.0 Iron deficiency anemia secondary to blood loss (chronic); C20 Malignant neoplasm of rectum
CPT/HCPCS: 36415; 80053; 82378; 82728; 83036; 83540; 83550; 84443; 85025

== ENCOUNTER 2021-01-15 23:22 | Emergency (ER) | payer MEDICARE, BC, SELFPAY ==
[2019-07-03 08:04] VITALS: BMI 27.0
[2021-01-15 23:22] VITALS: BP 216/94; PULSE 86; RESP 16; TEMP 36.6; O2SAT 98; BMI 33.3
[2021-01-15 23:45] VITALS: BP 170/54; PULSE 76; RESP 18; O2SAT 98
--- NOTE | 2021-01-15 23:56 | EKG12_ITS ---
Test Reason : CP Blood Pressure : / mmHG Vent. Rate : 081 BPM Atrial Rate : 081 BPM P-R Int : 150 ms QRS Dur : 080 ms QT Int : 364 ms P-R-T Axes : 000 025 035 degrees QTc Int : 422 ms Normal sinus rhythm Normal ECG Confirmed by ESTEBAN FU, BELEN ([id number]), loan expeditor SATURNINO BENAVIDEZ ([id number]) on 01/17/2021 9:26:54 AM Referred By: ROCK Confirmed By:NURY ORELLANA MD
[2021-01-15] MEDS: Aspirin 81 MG TAB.CHEW 324 MG PO (23:59)
[2021-01-16] VITALS: O2SAT 99
--- NOTE | 2021-01-16 | RAD_ITS ---
STUDY: X-RAY CHEST REASON FOR EXAM: Female, 80 years old. chest pain TECHNIQUE: Single AP portable view of the chest. COMPARISON: Drug [facility] view CT chest March 08, 2019 FINDINGS: No focal infiltrates or effusions. No pneumothorax. Normal size heart. Normal mediastinum and katharine. Normal visualized pulmonary arteries. Normal visualized aortic arch and descending thoracic aorta. Normal visualized thoracic spine. Normal visualized ribs, clavicles, and shoulders. There is no demonstrated abnormality of the visualized soft tissue structures of the upper abdomen. RAD/Chest 1 View (Portable) IMPRESSION: No acute cardiopulmonary disease. Electronically Signed: Rohan Kelsey MD at 0:27 EDT , Service support ,
[2021-01-16 00:06] LABS: Absolute Lymphocyte Count 0.94 X10^3/uL (0.83-4.51); Absolute Neutrophil Count 2.6 X10^3/uL (2.0-7.7); Basophil# 0.03 X10^3/uL; Basophil% 0.7 % (0-1); Eosinophil# 0.23 X10^3/uL; Eosinophils% 5.4 % (0-5); Hematocrit 44.5 % (37-47); Lymphocyte # 0.94 X10^3/ul (0.83-4.51); Lymphocyte % 22.1 % (19-41); Mean Corp Hgb Conc 31.5 g/dL (32-36); Mean Corpuscular Hgb 26.8 pg (27.0-32.0); Mean Corpuscular Volume 85.2 fL (81-99); Mean Platelet Vol. 9.9 fl (6.2-12.0); Monocyte# 0.43 X10^3/uL; Monocyte% 10.1 % (0-10); NRBC Flagged by Analyzer 0 % (0-5); Neutrophil # 2.63 X10^3/uL (2.7-7.7); Neutrophil % 61.7 % (47-70); Platelet Count 221 K/mm3 (150-450); RBC Distribution Width CV 14.3 % (11.6-14.6); Red Blood Count 5.22 M/mm3 (4.2-5.4); White Blood Count 4.3 K/mm3 (4.4-11.0)
[2021-01-16 00:21] LABS: Anion Gap 5 (5-15); BUN 16 mg/dL (7-18); BUN/Creat Ratio 15.7 RATIO (10-20); Calcium,Total 8.9 mg/dL (8.5-10.1); Chloride 103 mmol/L (98-107); Creatinine, Serum 1.02 mg/dL (0.55-1.02); EST Glomerular Filtration Rate 56 mL/min (>60); Est Glom Filt Rate - Afr Amer 67 mL/min (>60); Glucose 322 mg/dL (74-106); Potassium 3.6 mmol/L (3.5-5.1); Sodium Level 136 mmol/L (136-145); Troponin-I HS 5.7 pg/mL (3.0-53.7)
--- NOTE | 2021-01-16 01:18 | ED.VIS.CHEST ---
HPI History of Present Illness Chief Complaint: Chest Pain Informant: patient Onset/Context/Timing Onset: Today and Hours Activity at onset: gradual Timing: Continuous Quality: Positive for Dull Location: Left Chest Current Severity: Mild Maximum Severity: Mild Worsened By: Nothing; Not Worsened By Exertion, Movement of Arm, Movement of Torso, Eating, Palpation, Breathing and Coughing Relieved By: Nothing Associated Symptoms: Negative for Nausea, Vomiting, Diaphoresis, Dyspnea, Cough, Fever, Lightheadedness, Acid Reflux and Palpitations Narrative Narrative: 80-year-old female history of insulin-dependent diabetes prior rectal cancer with surgery and an ileostomy that was reversed. She is never had a DVT or PE. States today her blood sugars running elevated around 400. She was sitting at the kitchen table cleaning some food and developed left arm and left-sided chest pain. Lasted about 3 hours. Currently is resolving. Nothing made it particularly worse or better. There was no pleuritic pain. She was not short of breath. She did not get nauseated nor vomiting. She did not become diaphoretic. She has had stress test before in the past they were negative. She is never had a cardiac catheterization. She denies any recent exertional chest pain. She has no known cardiac history. She denies any recent travel, surgery or immobilization. No hemoptysis. No calf pain or swelling. Prior Similar Symptoms: No Recent Illness/Hospitalization: No CVD Risk Factors: Positive for Hypertension and Diabetes; Negative for Smoking PE Risk Factors: Negative for Recent Travel/Surgery, Recent Immobilization, Prior DVT or PE, Cancer and OCP + Smoking + >/=35 TAD Risk Factors: Negative for Marfan's Syndrome and Hypertension [facility] Medical History Arthritis Diabetes mellitus Hypertension Rectal cancer Thickened endometrium TIA (transient ischemic attack) Home Medications hydrochlorothiazide 12.5 mg tablet 12.5 mg PO DAILY PRN 01/30/19 [History Last Taken Unknown] ferrous sulfate 325 mg PO DAILY 05/13/19 [History Last Taken Unknown] multivitamin with minerals 1 ea PO DAILY 05/13/19 [History Last Taken Unknown] clopidogrel [Plavix] 75 mg PO DAILY 01/15/21 [History Last Taken Unknown] glipizide 2.5 mg PO DAILY 01/15/21 [History Last Taken Unknown] insulin glargine U-300 conc [Toujeo SoloStar U-300 Insulin] 18 unit SUBCUT DAILY 01/15/21 [History Last Taken Unknown] Allergy/AdvReac Type Severity Reaction Status Date / Time chlorhexidine Allergy Intermediate Rash Verified 01/15/21 23:24 [From Hibiclens] Latex, Natural Rubber Allergy Intermediate Rash Verified 01/15/21 23:24 metoprolol Allergy Intermediate insomnia Verified 01/15/21 23:24 prednisone Allergy Unknown Unknown Verified 01/15/21 23:24 Family History Mother Hypertension Diabetes Father Kidney disease Surgical History History of hemorrhoidectomy Ileostomy status S/P cholecystectomy Social History Smoking Status: Never smoker alcohol intake: never substance use type: does not use caffeine: Yes what type of physical activity do you participate in: none seatbelt use: always do you feel safe at home: Yes additional social history: -Mckoy ROS ROS ED ROS Narrative Patient denies any recent illness. Review of Systems ROS Unobtainable: Denies due to encephalopathy Constitutional Constitutional ED: Denies chills or fever(s) Eyes Eyes: Denies none ENT ENT ED: Denies ear pain or sore throat Cardiovascular Cardiovascular: Reports as per HPI and chest pain; Denies palpitations Respiratory/Chest Respiratory/Chest: Denies cough, dyspnea or sputum Gastrointestinal Gastrointestinal: Denies abdominal pain, constipation, diarrhea, nausea or vomiting Genitourinary Genitourinary ED: Denies dysuria or hematuria Musculoskeletal Musculoskeletal: Denies myalgias Integumentary Denies rash Neurologic Neurologic: Denies headache(s) Psychiatric Psychiatric: Denies depression Endocrine Endocrinology: Denies polyuria Hematologic/Lymphatic Hematologic/Lymphatic: Denies easy bruising Allergic/Immunologic Allergic/Immunologic ED: Denies urticaria EXAM Physical Exam Narrative Exam Narrative: Older female no acute distress. Vital signs stable afebrile. Initial blood pressure 216/94. Repeated 170/54. Pulse ox 98% on room air no signs of hypoxia. Lungs are clear. Heart regular rhythm no murmur. Chest wall nontender. No ecchymosis or bruising. No crepitance. Abdomen soft nontender normal bowel sounds no peritoneal signs. Moving all 4 extremities. Calves nontender no edema. Neurologically she is awake alert. Very benign exam. Const Vital Signs: 01/15/21 23:22 01/15/21 23:45 01/16/21 00:00 Temperature 97.9 F Temperature Source Temporal Pulse Rate 86 76 Respiratory Rate 16 18 Blood Pressure 216/94 H 170/54 H Blood Pressure Mean 134 92 Pulse Ox 98 98 99 Oxygen Delivery Method Room Air Room Air Room Air Positive well nourished and well developed; Negative for unkempt General Appearance ED: well developed and NAD; Negative for unkempt HEENT Reports moist mucous membranes normocephalic and atraumatic; Negative for trauma or tenderness Eyes PERRL and EOMs intact bilaterally Neck no lymphadenopathy, supple and no JVD General: Negative for tenderness Chest Wall inspection of chest normal and palpation of chest normal Chest: Negative for tenderness Resp normal respiratory effort and clear to auscultation bilaterally Effort and Inspection: respiratory distress; Negative for pain with movement Auscultation: Negative for rales, rhonchi, wheezes or diminished lung sounds Cardio regular rate, regular rhythm, S1 normal heart sound, S2 normal heart sound and no murmurs Rate: tachycardic GI normal to inspection, nondistended, normoactive bowel sounds, soft to palpation, non-tender, non-distended and no masses; Negative for hepatosplenomegaly Auscultation: Negative for hyperactive bowel sounds Palpation: Negative for splenomegaly or mass Back/Spine no CVA tenderness Extremity normal to inspection General Extremety ED: Negative for edema, pulses abnormal or tenderness General Extremity: Negative for edema or pulses abnormal Neuro oriented x3 and CN's II-XII intact bilaterally Sensorium / Orientation: alert, oriented to person, oriented to place and oriented to time Motor Exam: strength 5/5 throughout Psych mental status grossly normal Appearance: Negative for unkempt Skin no rashes or lesions noted Heart Score History: Slightly/Non-Suspicious ECG: Normal Age: >/= 65 years Risk Factors: 1 or 2 Risk Factors Troponin: </= Normal Limit Score: 3 MDM MDM MDM Narrative Medical decision making narrative: Order diabetic female with chest pain at rest. Benign exam. Undergo cardiac work-up. Repeat exam patient is doing well at 1:45 AM. She denies discussed all of her test results. We discussed getting a second high-sensitivity troponin which she did not want to wait for have done. I do not have a strong suspicion this is cardiac chest pain but it cannot be ruled out. She had I discussed treating her high blood sugar. We will checked another BG T prior to discharge and it was 230 at around 1:50 AM. Lab Data Attestation: I reviewed the patient's lab results. Lab results narrative: CBC White count of 4. Hemoglobin 14. Electrolytes unremarkable gap of 5. Creatinine of 1. Glucose 322. High-sensitivity troponin 5.7 patient did not want a second troponin done. Labs: Laboratory Results - last 24 hr 01/15/21 01/15/21 01/16/21 23:39 23:39 01:52 WBC 4.3 L RBC 5.22 Hgb 14.0 Hct 44.5 MCV 85.2 MCH 26.8 L MCHC 31.5 L RDW Std Deviation 44.0 H RDW Coeff of Ran 14.3 Plt Count 221 MPV 9.9 Immature Gran % (Auto) 0.000 Neut % (Auto) 61.7 Lymph % (Auto) 22.1 Hooker % (Auto) 10.1 H Eos % (Auto) 5.4 H Baso % (Auto) 0.7 Absolute Neuts (auto) 2.6 Absolute Lymphs (auto) 0.94 Nucleated RBC % 0 Sodium 136 Potassium 3.6 Chloride 103 Carbon Dioxide 28.0 Anion Gap 5 BUN 16 Creatinine 1.02 Estim Creat Clear Calc 40.90 Est GFR (MDRD) Af Amer 67 Est GFR (MDRD) Non-Af 56 L BUN/Creatinine Ratio 15.7 Glucose 322 H Calcium 8.9 Troponin I High Sens 5.7 POC Glucose 230 H Radiography Chest X-Ray - ED: 1 View, Read by ED Physician, Read by Radiologist, Heart, Lungs, Mediastinum, Bony Structures, No Acute Disease and Chronic Changes Diagnostic Testing: Radiology Impression Chest X-Ray 01/16/21 00:00 IMPRESSION: No acute cardiopulmonary disease. Electronically Signed: Rohan Kelsey MD at 0:27 EDT , Service support , Both myself and radiologist interpreted chest x-ray as no acute process. Rhythm Strip Rhythm Strip: Sinus Rhythm Rate: 81 Ectopy: None EKG Initial EKG: Attestation: I personally reviewed and interpreted this EKG as follows: Interpretation: Sinus Rhythm and No Acute Injury Pattern Comments: Normal sinus rhythm rate 81 no acute signs of LA or ischemia. Prior EKG tracings: not available for review Discharge Plan Triage Chief Complaint: Chest Pain ED Provider: Edenilson Meadows Dx/Rx/DC Orders Clinical Impression: Acute hyperglycemia, Chest pain of uncertain etiology, Diabetes mellitus Instructions: ED Chest Pain, Uncertain Cause, ED Diabetic Hyperglycemia Prescriptions: No Action hydrochlorothiazide 12.5 mg tablet 12.5 mg PO DAILY PRN (Reason: EDEMA) RF: 0 ferrous sulfate 325 MG tablet 325 mg PO DAILY RF: 0 multivitamin with minerals 1 EACH tablet 1 ea PO DAILY RF: 0 clopidogrel [Plavix] 75 mg Tablet 75 mg PO DAILY RF: 0 Toujeo SoloStar U-300 Insulin 300 unit/mL (1.5 mL) Insulin Pen 18 unit SUBCUT DAILY RF: 0 glipizide 2.5 mg Tablet Extended Release 24hr 2.5 mg PO DAILY RF: 0 Primary Care Provider: Altagracia Ochoa NP Referrals: Altagracia Ochoa NP, [facility] [employer] OPERATOR-C [Primary Care Provider] - As soon as possible Activity Restrictions/Additional Instructions: Check your blood sugar shortly after getting up later this morning. Follow-up with your primary care provider. Return if you are feeling worse or develop recurrent chest pain or exertional chest pain or shortness of breath. Disposition Disposition: Home, Self Care
[2021-01-16 01:55] LABS: Bedside Glucose 230 mg/dL (70-110)
[2021-01-16 01:57] VITALS: BP 162/94; PULSE 71; RESP 15; O2SAT 99
== END 2021-01-16 01:58 | disposition home or self-care (01) ==
PROVIDERS: Emergency Provider Emergency Medicine; PCP Nurse Practitioner
DX: E11.65 Type 2 diabetes mellitus with hyperglycemia (principal); R07.9 Chest pain, unspecified; I10 Essential (primary) hypertension; Z86.73 Personal history of transient ischemic attack (TIA), and cerebral infarction without residual deficits; Z79.4 Long term (current) use of insulin; Z85.048 Personal history of other malignant neoplasm of rectum, rectosigmoid junction, and anus; Z93.2 Ileostomy status; Z90.49 Acquired absence of other specified parts of digestive tract
CPT/HCPCS: 71045; 80048; 82962; 84484; 85025; 93005; 99284; A4216

== ENCOUNTER → 2023-09-24 | Outpatient (REF) | payer MEDICARE, BC, SELFPAY | LOC: OLS.ACH 05:00 | PROVIDERS: PCP Nurse Practitioner Family; Visit Provider Family Medicine | DX: E11.65 Type 2 diabetes mellitus with hyperglycemia (principal) | CPT/HCPCS: 36415; 83036 ==

== ENCOUNTER → 2024-11-17 | Outpatient (CLI) | payer MEDICARE, BC, SELFPAY ==
[2024-11-17 12:29] LABS: Absolute Lymphocyte Count 1.62 X10^3/uL (0.83-4.51); Absolute Neutrophil Count 3.9 X10^3/uL (2.0-7.7); Basophil# 0.05 X10^3/uL; Basophil% 0.8 % (0-1); Eosinophil# 0.29 X10^3/uL; Eosinophils% 4.5 % (0-5); Hemoglobin 12.3 g/dL (12.0-15.0); Lymphocyte # 1.62 X10^3/ul (0.83-4.51); Lymphocyte % 25.4 % (19-41); Mean Corp Hgb Conc 32.4 g/dL (32-36); Mean Corpuscular Hgb 28.7 pg (27.0-32.0); Mean Corpuscular Volume 88.6 fL (81-99); Mean Platelet Vol. 10.7 fl (6.2-12.0); Monocyte# 0.55 X10^3/uL; Monocyte% 8.6 % (0-10); NRBC Flagged by Analyzer 0 % (0-5); Neutrophil # 3.85 X10^3/uL (2.7-7.7); Neutrophil % 60.4 % (47-70); Platelet Count 282 K/mm3 (150-450); RBC Distribution Width CV 14.5 % (11.6-14.6); RBC Distribution Width SD 46.8 fl (35.1-43.9); Red Blood Count 4.29 M/mm3 (4.2-5.4); White Blood Count 6.4 K/mm3 (4.4-11.0)
[2024-11-17 13:02] LABS: ALB/GLOB Ratio 1.2 RATIO (0.9-2.4); AST(SGOT) 17 U/L (<=31); Alanine Aminotransfer ALT/SGPT 10 U/L (<=34); Alkaline Phosphatase 66 U/L (35-104); Anion Gap 10 (5-15); BUN 18 mg/dL (4-19); Calcium,Total 9.1 mg/dL (7.6-11.0); Carbon Dioxide 23.4 mmol/L (21.0-32.0); Chloride 105 mmol/L (98-108); Cholesterol 197 mg/dL (<=200); Creatinine, Serum 0.99 mg/dL (0.70-1.20); EST Glomerular Filtration Rate 57 (>60); Globulin 3.2 g/dL (2.2-4.2); Glucose 210 mg/dL (70-99); High Density Lipoprotein 53 mg/dL; Low Density Lipoprotein Calc. 128 mg/dL; Potassium 4.1 mmol/L (3.3-5.1); Protein, Total 7.2 g/dL (5.9-8.4); Sodium Level 138 mmol/L (133-145); Total Bilirubin 0.52 mg/dL (0.00-1.30); Triglycerides 82 mg/dL; Very Low Density Lipoprotein 16 mg/dL (5-40); cholesterol:hdl ratio screen 3.72
== END | disposition home or self-care (01) ==
LOC: BIMLAB 09:08
PROVIDERS: PCP Nurse Practitioner Family; Referring Provider Nurse Practitioner Family; Visit Provider Nurse Practitioner Family
DX: E11.9 Type 2 diabetes mellitus without complications (principal); Z79.4 Long term (current) use of insulin
CPT/HCPCS: 36415; 80053; 80061; 84443; 85025

== ENCOUNTER → 2024-12-07 | Outpatient (CLI) | payer MEDICARE, BC, SELFPAY ==
[2024-12-07 15:57] LABS: Microalbumin,Random Urine < 12.0 mg/L (NO RANGE EST.)
== END | disposition home or self-care (01) ==
LOC: MTLAB 13:06
PROVIDERS: PCP Nurse Practitioner Family; Referring Provider Nurse Practitioner Family; Visit Provider Nurse Practitioner Family
DX: E11.9 Type 2 diabetes mellitus without complications (principal); Z79.4 Long term (current) use of insulin
CPT/HCPCS: 82043